=== PATIENT | female | born 1965 | race Caucasian/White ===

== ENCOUNTER 2022-01-20 19:04 | Emergency (ER) | payer BC, SELFPAY ==
[2022-01-20 19:15] VITALS: BP 143/83; PULSE 87; RESP 16; TEMP 36.3; O2SAT 93
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
--- NOTE | 2022-01-20 21:37 | W.ED.FALL ---
HPI - Fall General: Chief Complaint: Fall Stated Complaint: R hip and R knee injury Time Seen by Provider: 01/20/22 20:57 History of Present Illness: 56-year-old female patient presents to the emergency department with right knee laceration and right lumbar pain. Patient states she was at [employer] and was walking on a hiking trail and fell landed on a rock. Patient does not have any loss of bowel or bladder any numbness or tingling. Patient states she does has a dull ache to her right lower back as well as right knee pain. Patient states her tetanus shot is not up-to-date. Patient did not hit her head patient did not have any loss of consciousness patient is not on anticoagulants. Associated symptoms-after fall: Denies abdominal pain, chest pain, confusion, difficulty walking, headache(s), hematuria, lightheadedness, neck pain or vertigo Review of Systems Const: Denies: fever(s), chills, body aches, change in appetite, change in weight, fatigue, malaise or diaphoresis Eyes: Denies: change in vision, blurry vision, blind spots, photophobia, eye discomfort, eye discharge, eye redness, floaters or seeing flashes ENMT: Denies: throat pain, uvular edema, enlarged tonsils, odynophagia, hoarseness, mouth pain, swelling of lips/tongue, oral sores, bleeding gums, dental pain, dry mouth, ear or mastoid pain, ear discharge, change in hearing, tinnitus, disequilibrium, nasal discharge, nasal congestion, post nasal drip or sinus pain Card: Denies: chest pain, palpitations, irregular heart rhythm, edema, swelling of feet/ankles, lightheadedness, syncope, pre-syncope, dyspnea on exertion, orthopnea, leg pain with exertion or acrocyanosis Resp: Denies: dyspnea, productive cough, non-productive cough, wheezing, stridor, pain on inspiration, change in phlegm color, hemoptysis or chest congestion GI: Denies: abdominal pain, nausea, vomiting, hematemesis, dysphagia, diarrhea, constipation, GI cramping, change in bowel habits or rectal pain : Denies: flank pain, difficulty voiding, dysuria, urinary frequency, urinary urgency, urinary hesitancy or hematuria Musc: Reports: back pain, extremity pain and other (4 cm jagged laceration); Denies: neck pain, extremity swelling, joint pain, joint swelling, joint redness, joint warmth or deformity Skin/Breast: Denies: rash, pruritus, erythema, sores, new lesions, changes in skin color or dry skin Neuro: Denies: headache(s), numbness in extremities, weakness in extremities, sensory changes, lack of coordination, difficulty walking, frequent falls, dizziness, vertigo, confusion, behavioral changes, Slurred speech present, difficulty communicating thoughts or seizure-like activity Psych: Denies: anxiety, depression, suicidal ideation or homicidal ideation Endo: Denies: polyuria, polydipsia, tired all the time, cold intolerance, excessive sweating, flushing, hot flashes or heat intolerance George/Lymph: Denies: easy bruising, easy bleeding, petechiae, purpura, enlarged lymph nodes or tender lymph nodes All/Imm: Denies: urticaria, throat swelling, tongue swelling, facial swelling, acute wheezing or itchy eyes Physical Exam Const: COMMON NORMALS: no acute distress, average body habitus, patient oriented x3, no limitations, healthy appearing, alert and well nourished HENMT: COMMON NORMALS: normocephalic, atraumatic, hearing grossly normal bilaterally, external ears normal, EAC's normal, TM's normal bilaterally, Normal external nose present, Normal nasal mucous membranes and turbinates present, moist oral mucous membranes, oropharynx normal, dentition normal and gingiva normal HEAD & SCALP: normocephalic and atraumatic NOSE: Normal external nose present and Normal nasal mucous membranes and turbinates present EXTERNAL EAR: Yes external ears normal EXTERNAL AUDITORY CANAL: EAC's normal TYMPANIC MEMBRANE: TM's normal bilaterally THROAT: no uvular edema Eye: GENERAL EYE: appearance normal, both eyes and all related structures Neck/C-Spine: COMMON NORMALS: full ROM, no lymphadenopathy, supple, no meningeal signs, no JVD, Thyroid normal and No carotid bruits THYROID: Thyroid normal Chest: COMMONS NORMALS: normal inspection of the chest and normal palpation of entire chest wall Resp: COMMON NORMALS: normal respiratory effort, No retractions, No use of accessory muscles, clear to auscultation bilaterally and percussion normal AUSCULTATION: clear to auscultation bilaterally PERCUSSION: percussion normal Cardio: COMMON NORMALS: no JVD, regular rate and regular rhythm RATE: regular rate RHYTHM: regular rhythm GI: COMMON NORMALS: Normal to inspection, nondistended, normoactive bowel sounds present, Soft to palpation and non-tender PALPATION: Yes Soft to palpation : COMMON NORMALS: Yes no CVA tenderness BLADDER/KIDNEY EXAM: Yes no CVA tenderness Back/Pelvis: COMMON NORMALS: no CVA tenderness; negative for no thoracic nor lumbar tenderness Extremity: NARRATIVE EXTREMITY EXAM: pt has a jagged 4 cm laceration to right knee Neuro: COMMON NORMALS: patient oriented x3 SENSORIUM/ORIENTATION: Yes alert MENINGEAL SIGNS: Yes no meningeal signs Procedures Laceration Laceration 1: Site: lower extremity (right knee) Size (cm): 4 Local Anesthetic: lidocaine 1% Amount of anesthesia used (mL): 5 Pre-repair: wound explored and irrigated extensively Skin layer closed with: nylon Size (cm): 5-0 Number of sutures: 11 Course Vital Signs: Vital signs: Vital Signs Temperature 97.3 F L 01/20/22 19:15 Pulse Rate 87 01/20/22 19:15 Respiratory Rate 16 01/20/22 19:15 Blood Pressure 143/83 01/20/22 19:15 Pulse Oximetry 93 01/20/22 19:15 Oxygen Delivery Me thod 01/20/22 19:15 MDM - Fall Medical Decision Making Patient is well appearing non toxic and in no acute distress. 56-year-old female patient presents to the emergency department with right knee laceration and right lumbar pain. Patient states she was at [employer] and was walking on a hiking trail and fell landed on a rock. Patient does not have any loss of bowel or bladder any numbness or tingling. Patient states she does has a dull ache to her right lower back as well as right knee pain. Patient states her tetanus shot is not up-to-date. Patient did not hit her head patient did not have any loss of consciousness patient is not on anticoagulants. Please see procedure note for suture repair there are no fractures or dislocation noted there was no evidence of FB. CT lumbar reveals L2L3 Transverse process fracture. Patient was given norco and had clinical improvement will place [facility]. Patient is from out of town and will follow up with Neurosurgery when she returns on saturday. Pt ambulates without dificulty sensation intact. Pt is NVI distally. Differential Diagnosis Likely compression fracture, concussion with loss of consciousness and concussion without loss of consciousness Lab Data Radiology Impressions Knee X-Ray 01/20/22 21:37 IMPRESSION: There are no acute osseous findings Lumbar Spine CT 01/20/22 21:37 IMPRESSION: Acute fractures of the transverse processes of L2 and L3 the right. Discharge Plan Discharge Clinical Impression: Laceration, Fracture of transverse process of lumbar vertebra Condition: Stable Discharge Orders: Discharge ED (Routine); Ordered 01/21/22 Ordered By: Yessica Dao Discharge Diet: Advance as tolerated Discharge Activity: Limit activity as instructed Patient Instructions: Transverse Process Fracture (ED), Laceration (ED) Activity Restrictions/Additional Instructions: Please wear back brace and follow up with Neurosurgery when you return home Sutures need to be removed in 8-10 days Return to ER with any worsening of condition, fever, numbness or tingling, loss of bowel or bladder or any other concerns Please follow wound care instructions Coding Level of Care Code ED [facility] Aide for Lisa Nunez
[2022-01-20] MEDS: HYDROcodone-acetaminophen 5-325 mg Tablet 1 TAB PO (21:56)
[2022-01-21] MEDS: HYDROcodone-acetaminophen 5-325 mg Tablet 4 TAB PO (00:05)
[2022-01-21] MEDS: tetanus-diphtheria tox (adult) 0.5 mL SDV IM (00:05)
== END 2022-01-21 00:55 | disposition home or self-care (01) ==
PROVIDERS: Emergency Provider Registered Nurse
DX: S81.011A Laceration without foreign body, right knee, initial encounter (principal); S32.029A Unspecified fracture of second lumbar vertebra, initial encounter for closed fracture; S32.039A Unspecified fracture of third lumbar vertebra, initial encounter for closed fracture; W19.XXXA Unspecified fall, initial encounter; Y93.01 Activity, walking, marching and hiking; Z23 Encounter for immunization
CPT/HCPCS: 12002; 72131; 73562; 90471; 90714; 99284; L0456